=== PATIENT | male | born 1955 | race Caucasian/White ===

== ENCOUNTER 2018-08-03 15:58 | Emergency (ER) | payer BC, MEDICARE, SELFPAY ==
[2018-08-03 16:14] VITALS: BP 114/90; PULSE 73; RESP 16; TEMP 37.1; O2SAT 96
--- NOTE | 2018-08-03 17:18 | DI.RAD_ITS ---
SYMPTOM/DIAGNOSIS: COUGH, SOB PA AND LATERAL CHEST: The heart is normal in size. The lungs are clear. The mediastinal structures and pleura appear intact. CONCLUSION: Normal chest. No evidence of acute cardiopulmonary disease.
--- NOTE | 2018-08-03 17:23 | ED.GENADUL_ITS ---
Discharge Plan Disposition Patient Disposition: HOME Condition: Improving Discharge Details Chief Complaint: RespSymp Clinical Impression: Bronchitis, Acute exacerbation of chronic obstructive pulmonary disease (COPD) , Dizziness Primary Care Provider: Kulwinder Claudio ED Provider: Erin Marroquin Home Meds and New Rx's Prescriptions: New prednisone 50 mg tablet 50 mg PO DAILY Qty: 5 RF: 0 levofloxacin 750 mg tablet 750 mg PO DAILY Qty: 5 RF: 0 Continue zolpidem 10 MG tablet 10 mg PO HS PRNQty: 30 RF: 1 paroxetine HCl 30 MG tablet 30 mg PO DAILY Qty: 90 RF: 0 lisinopril 5 MG tablet 5 mg PO DAILY Qty: 90 RF: 4 Metoprolol Succinate 25 MG TAB.ER.24H 25 mg PO DAILY Qty: 90 RF: 4 pantoprazole 40 MG tablet,delayed release (DR/EC) 40 mg PO BID@729,1999 Qty: 180 RF: 4 clonazepam 0.5 MG tablet 0.5 mg PO BID Qty: 60 RF: 2 ranitidine HCl [Zantac] 150 MG tablet 300 mg PO HS Qty: 30 RF: 0 nitroglycerin [Nitrostat] 0.4 MG tablet, sublingual 0.4 mg Sublingual Q5 MIN PRN X3 PRNQty: 1 RF: 0 aspirin 81 MG tablet,chewable 81 mg PO DAILY RF: 0 albuterol sulfate [ProAir HFA] 200 PUFF/INH HFA aerosol inhaler 2 puff Inhalation Q4H PRN PRNQty: 1 RF: 0 Discharge Instructions Instructions: Acute Bronchitis (ED), COPD (Chronic Obstructive Pulmonary Disease) (ED), Dizziness (ED) Additional Instructions: Drink plenty of fluids and get plenty of rest. Take the antibiotics and steroids until finished. Follow-up with your primary care doctor in 1 week for reevaluation. Return to the emergency department with any worsening or new concerning symptoms. Stand Alone Forms: Work Release Discharge Data Discharge Date/Time-TO BE ENTERED AT DEPARTURE: 08/03/18 23:40 Discharge Physician: Erin Marroquin Medical Decision Making MDM Narrative Medical decision making narrative: 63 yo M with a history of COPD and former tobacco smoker who quit fatigue, decreased p.o. intake, nausea, cough occasionally dry and occasionally productive of yellow sputum, shortness of breath, and dizziness for the past 2 days. Patient states he mainly because his forced him to come in for evaluation. Patient states he is mainly concerned that he has pneumonia which is diagnosed with in March 2018 for which required hospitalization. He admits to occasional chest tightness but denies any chest pain or tightness at present. He denies fever. He denies recent antibiotics or steroids after March 2018. Vitals within normal limits. Diminished breath sounds throughout. No wheezing rales or rhonchi noted. No lower extremity edema. Patient airway intact and speaking full sentences. He appears nontoxic. 1747 --EKG notes a rate of 56, sinus, no acute ST elevation or depression. QTc 396. QRS 80. Differential diagnosis includes pneumonia, acute exacerbation, acute CHF, RI, viral illness. Will place an IV, fluids, labs including BNP, troponin, chest x-ray and urinalysis. We will also give a DuoNeb and Solu-medrol. 1914 --labs and imaging reviewed and unremarkable. White blood cell count 5.24. Hemoglobin 12.6. Creatinine 1.47. Troponin negative. BNP 264. Chest x -ray negative. 1944 --patient still complaining of dizziness and fatigue on exam. States he will feel short of breath. Will give another neb treatment at 7.5 mg and reassess. We will also obtain a urinalysis. Will finish liter IV fluid. 2129 --he feels no better after fluids and still complaining of fatigue and dizziness and nausea. He denies any headache. Urinalysis negative. Patient is requesting admission for his fatigue as he states he is too weak to go home. Patient has not eaten for the past few days. We will give a liter IV fluids, tray of food and dose of Zofran and reassess. 2314 --patient feels better after IV fluids and is requesting to go home. Patient states he still feels tired. Patient was offered admission but declines stating he would rather go home. It was explained to patient that he would have to be transferred to another facility as we have no beds available and again he is requesting to go home. He states he will come back tomorrow if he does not feel well. Patient stated that he has had cold symptoms with productive cough for the past 10 days. Although patient has no fever, white blood cell count, and negative chest x-ray, with fatigue, history of COPD, and lingering cough, will treat with antibiotics. Pt was sent home with a prescription for Levaquin and prednisone and inhaler. Patient instructed to follow-up with his primary care doctor for reevaluation and return here immediately if worse. HPI - General Adult General Date/Time Provider Initiated Documentation: 08/03/18 16:25 . HPI Narrative: Pt is a 63yo M w/ a h/o COPD and former tobacco smoker who presents to the ED w/ a c/o cold symptoms x 1.5 weeks and fatigue and decrease PO intake for the past 2 days. Pt states he has been sleeping most of the day for the past 2 days. Admits to cough mainly with exertion and is occasionally dry vs productive of yellow sputum. Admits to onset of shortness of breath since last night. Denies chest pain. Also admits to dizziness that sometimes feels like lightheadedness and also like spinning. Also admits to nausea. Denies vomiting, diarrhea, fever, urinary symptoms.abdominal pain, recent travel , recent antibiotics, recent surgery, leg pain or swelling. Past medical history: COPD, HTN, RI, Kidney stone Past surgical history: Stent placement, Hernia repair, L ankle surgery x 3, Pelvic fusion, Kidney stone, Rotator cuff repair Social history: Quit tobacco 2014, Former ETOH, denies drugs Meds: Albuterol, ASA, Clonazepam, Lisinopril, Metoprolol, Nitro, Protonix, Zantac, Ambien Allergies: NKDA Related Data Home Medications Medication Instructions Recorded Confirmed zolpidem 10 mg PO HS PRN #30 tab-cap 04/01/18 08/03/18 Previous Rx's Medication Instructions Recorded albuterol sulfate [ProAir HFA] 2 puff INHALATION Q4H PRN PRN #1 03/13/18 inh aspirin 81 mg PO DAILY chew 03/13/18 nitroglycerin [Nitrostat] 0.4 mg SUBLINGUAL Q5 MIN PRN X3 03/13/18 PRN #1 btl ranitidine HCl [Zantac] 300 mg PO HS #30 tab 03/13/18 paroxetine HCl 30 mg PO DAILY #90 tab-cap 05/05/18 lisinopril 5 mg PO DAILY #90 tab-cap 05/22/18 pantoprazole 40 mg PO BID@07,1999 #180 tabcr 05/22/18 clonazepam 0.5 mg PO BID #60 tab-cap 06/30/18 levofloxacin 750 mg PO DAILY #5 tab 08/03/18 prednisone 50 mg PO DAILY #5 tab 08/03/18 Allergies Allergy/AdvReac Type Severity Reaction Status Date / Time No Known Allergies Allergy Unverified 08/03/18 16:17 General Stated Complaint: RespSymp ANNELIESE: 3 Review of Systems Review of Systems All systems reviewed & are unremarkable except as noted in HPI and below Constitutional Denies chills, Denies excessive sweating, Reports fatigue, Denies fever(s), Reports poor appetite, Reports weakness and Denies weight loss Eyes Patient Reports system reviewed and no additional complaints, except as docu and Denies blurry vision ENT Denies vertigo, Reports dizziness, Denies otalgia, Denies nasal congestion, Denies sore throat and Denies throat swelling Cardiovascular Denies chest pain, Denies syncope, Denies rapid heart rate and Reports dyspnea Respiratory Reports dyspnea Gastrointestinal Denies abdominal pain, Denies diarrhea, Reports nausea and Denies vomiting Genitourinary Denies hematuria, Denies dysuria and Denies flank pain Musculoskeletal Denies back pain and Denies joint swelling Integumentary/Breasts Denies lesions and Denies rash Neurologic Denies behavioral changes, Denies confusion, Denies vertigo, Reports dizziness, Denies syncope and Reports weakness Psychiatric Denies behavioral changes, Denies confusion and Denies depression Endocrine Denies excessive sweating and Reports fatigue Hematologic/Lymphatic Denies easy bruising and Denies lymphadenopathy Allergic/Immunologic Denies throat swelling PFSH Family History Mother Neoplasm Father Substance abuse Heart disease Chronic obstructive lung disease Sister Substance abuse Brother Heart disease Myocardial infarction Cerebrovascular accident Brother Myocardial infarction Daughter Substance abuse Daughter Depression Social History Smoking/Tobacco Use Status: Former Tobacco Use Surgical History EGD - MAC (03/13/18) Stent placement (~2002) Exam Const General: cooperative, no acute distress and well developed Orientation: alert, awake and oriented x3 HENMT Head: normal to inspection Ears: hearing grossly normal bilaterally, external ears normal and TM's normal bilaterally General nose exam: external nose normal Face and sinus: normal facial exam Mouth: mucous membranes dry Teeth and gingiva: dentition normal Throat: posterior oropharynx normal Eyes General: appearance normal, both eyes and all related structures Eyelids: eyelids normal Pupils: PERRL EOM: EOM intact bilaterally Neck Neck: normal visual inspection Lymphatic: no lymphadenopathy noted Chest Chest: normal inspection of the chest Resp Effort & Inspection: normal respiratory effort and able to speak in complete sentences Auscultation: diminished lung sounds, no rales, no rhonchi and no wheezes Cardio Rate: regular rate Rhythm: regular rhythm GI Inspection: normal to inspection Palpation: soft, not firm, no guarding, no hepatosplenomegaly, no masses and nontender Auscultation: normal bowel sounds Back/Spine/Pelvis Back: no CVA tenderness Skin General skin exam: no rashes or lesions noted Neuro General: alert and awake Cognition: normal cognition Speech: speech normal Gait: normal gait Motor: muscle tone normal throughout Sensory Exam: no sensory deficits noted Extrem General: normal to inspection, full ROM, normal capillary refill, no calf tenderness bilaterally and no edema Psych Appearance: grossly normal Mental Status: mental status grossly normal Speech and Movement: speech and movement normal Affect: normal affect Thought Process: normal Course Vital Signs Temperature 98.8 F 08/03/18 16:14 Pulse 73 08/03/18 16:14 Respiratory Rate 16 08/03/18 16:14 Blood Pressure 114/90 08/03/18 16:14 Pulse Oximetry 96 08/03/18 16:14 Temperature 98.8 F 08/03/18 16:14 Pulse 73 08/03/18 16:14 Respiratory Rate 16 08/03/18 16:14 Blood Pressure 114/90 08/03/18 16:14 Pulse Oximetry 96 08/03/18 16:14
[2018-08-03] MEDS: Normal Saline 250 ML 500 ML IV (18:00)
[2018-08-03 18:06] VITALS: PULSE 73; RESP 16; O2SAT 96
[2018-08-03] MEDS: methylPREDNISolone SUCC 125 MG VIAL IVP (18:06)
[2018-08-03] MEDS: Albuterol/Ipratropium 3 ML UPD VIAL UPD (18:06)
[2018-08-03 18:10] LABS: Absolute Basophil Count 0.02 k/cumm (0.0-0.2); Absolute Eosinophil Count 0.14 k/cumm (0.0-0.7); Absolute Lymphocyte Count 1.54 k/cumm (1.2-3.4); Absolute Monocyte Count 0.63 k/cumm (0.11-0.7); Absolute Neutrophil Count 2.91 k/cumm (1.2-6.7); Basophils % 0.4; Eosinophils % 2.7; HCT 37.1 % (40.0-50.0); HGB 12.6 g/dL (13.5-17.5); Lymphocytes % 29.4; Mean Corpuscular Hemoglobin 32.5 pg (27.0-33.0); Mean Corpuscular Volume 95.6 fL (80-95); Neutrophils % 55.5; Platelet Count 144 x1000/uL (130-400); RBC 3.88 m/cumm (4.50-6.00); RBC Distribution Width 12.9 % (11.8-14.1); White Blood Cell Count 5.24 k/cumm (4.4-10.8)
[2018-08-03 18:15] VITALS: BP 114/71; PULSE 56; RESP 12; O2SAT 97
[2018-08-03 18:33] LABS: ALT 32 U/L (12-78); AST 25 U/L (15-37); Albumin 3.6 g/dL (3.4-5.0); Alkaline Phosphatase 70 U/L (46-116); Anion Gap 7.1 mmol/L (3-11); BUN 19 mg/dL (7-18); Bilirubin, Total 0.3 mg/dL (0.2-1.0); CO2 28.9 mmol/L (21.0-32.0); CREATININE 1.47 mg/dL (0.70-1.30); Calcium 8.4 mg/dL (8.5-10.1); Chloride 105 mmol/L (98-107); Estimated GFR 48.08 (mL/min/1.73m2); Glucose 83 mg/dL (70-100); Magnesium 1.9 mg/dL (1.8-2.4); NT-proBNP 264 pg/mL; Potassium 4.1 mmol/L (3.5-5.1); Sodium 141 mmol/L (136-145); Total Protein 6.8 g/dL (6.4-8.2)
[2018-08-03 18:35] LABS: Troponin I < 0.02 ng/mL (0.00-0.06)
[2018-08-03 18:36] VITALS: PULSE 60; RESP 17; O2SAT 96
[2018-08-03 18:46] VITALS: BP 115/65; PULSE 54; RESP 12; TEMP 37; O2SAT 96
--- NOTE | 2018-08-03 19:10 | DI.VRAD_ITS ---
EXAM: XR Chest, 2 Views CLINICAL HISTORY: 63 years old, male; Signs and symptoms; Cough and shortness of breath; Patient HX: Cough, SOB; Additional info: R/O acute disease TECHNIQUE: Frontal and lateral views of the chest. COMPARISON: CR - CHEST 2 VIEWS PA,LAT 03/08/2018 6:17 PM FINDINGS: Lungs: 6 mm diameter nodule in the retrosternal air space, likely granuloma and unchanged. Clear lungs. No pulmonary consolidation. Pleural space: Unremarkable. No pneumothorax. Heart: Unremarkable. No cardiomegaly. Mediastinum: Unremarkable. Bones/joints: Unremarkable. IMPRESSION: No acute findings. Dictated and Authenticated by: Ronnie Peñaloza MD. Ordering:KYRIE CHO MD
[2018-08-03] MEDS: Albuterol 2.5 MG/3 ML INH SOLN VIAL 7.5 MG UPD (20:05)
[2018-08-03] MEDS: Normal Saline 500 ML IV (20:05)
[2018-08-03 20:59] LABS: Bilirubin Negative (Negative); Blood Negative (Negative); Clarity Clear; Glucose Negative (Negative); Ketones Negative (Negative); Leukocyte Esterase Negative (Negative); Nitrite Negative (Negative); Specific Gravity 1.015 (1.005-1.025)
[2018-08-03] MEDS: Meclizine 25 MG TAB PO (21:35)
[2018-08-03] MEDS: Ondansetron 4 MG/2 ML VIAL IVP (21:35)
[2018-08-03] MEDS: Normal Saline 1,000 ML 1000 ML IV (21:41)
[2018-08-03] MEDS: LEVOFLOXACIN 500 MG, LEVOFLOXACIN 250 MG 750 MG PO (23:33)
[2018-08-03] MEDS: Albuterol HFA 8 GM 60 PUFF INH IH (23:34)
--- NOTE | 2018-08-04 09:51 | PDOC.ERCMPRO ---
Care Management Progress Note 08/04/18-Pt seen on 08/03/[address] for resp[address] Marin Marroquin. F/U referral was faxed to [facility] as Dr. Ayaz Claudio as he is Pt's PCP.
== END 2018-08-03 23:40 | disposition home or self-care (01) ==
PROVIDERS: Emergency Provider Physician Assistant; PCP Family Medicine
DX: J44.0 Chronic obstructive pulmonary disease with (acute) lower respiratory infection (principal); J20.9 Acute bronchitis, unspecified; R42 Dizziness and giddiness; Z87.891 Personal history of nicotine dependence; I10 Essential (primary) hypertension
CPT/HCPCS: 36415; 80053; 93005; 94640; 96361; 96374; 96375; 99284; 71046; 81003; 83735; 83880; 84484; 85025; 93010; 99285; J2405; J2930; J7613; J7620

== ENCOUNTER 2019-02-06 16:36 | Emergency (ER) | payer MEDICARE, BC, SELFPAY ==
[2019-02-06 16:38] VITALS: BP 141/67; PULSE 95; RESP 18; TEMP 36.8; O2SAT 96
--- NOTE | 2019-02-06 16:45 | DI.RAD_ITS ---
SYMPTOM/DIAGNOSIS: COUGH, SOB PA AND LATERAL CHEST: Comparison is made with 08/03/18. The cardiac and mediastinal contours have a normal appearance. The lungs are well inflated and clear. No infiltrate or effusion is seen. IMPRESSION: Negative chest xray.
--- NOTE | 2019-02-06 16:52 | ED.GENADUL_ITS ---
Discharge Plan Disposition Patient Disposition: HOME Condition: Good Discharge Details Chief Complaint: RespSymp Clinical Impression: Community acquired pneumonia, COPD exacerbation Primary Care Provider: Kulwinder Claudio ED Provider: Roland Quintanilla Home Meds and New Rx's Prescriptions: New doxycycline hyclate 100 mg capsule 100 mg PO BID Qty: 20 RF: 0 prednisone 50 MG tablet 50 mg PO DAILY Qty: 5 RF: 0 No Action lisinopril 5 MG tablet 5 mg PO DAILY Qty: 90 RF: 4 Metoprolol Succinate 25 MG TAB.ER.24H 25 mg PO DAILY Qty: 90 RF: 4 pantoprazole 40 MG tablet,delayed release (DR/EC) 40 mg PO BID@ Qty: 180 RF: 4 paroxetine HCl 30 mg tablet 30 mg PO DAILY Qty: 90 RF: 4 clonazepam 0.5 mg tablet 0.5 mg PO BID Qty: 60 RF: 2 albuterol sulfate [ProAir HFA] 90 mcg/actuation HFA aerosol inhaler 2 puff Inhalation Q4H PRN PRN (Reason: bronchospasm) Qty: 1 RF: 2 zolpidem 10 mg tablet 10 mg PO HS PRN (Reason: insomnia) Qty: 30 RF: 1 ranitidine HCl [Zantac] 150 MG tablet 300 mg PO HS Qty: 30 RF: 0 nitroglycerin [Nitrostat] 0.4 MG tablet, sublingual 0.4 mg Sublingual Q5 MIN PRN X3 PRNQty: 1 RF: 0 aspirin 81 MG tablet,chewable 81 mg PO DAILY RF: 0 Discharge Instructions Instructions: COPD (Chronic Obstructive Pulmonary Disease) (ED), Pneumonia (ED) Additional Instructions: Please take the antibiotic and steroids as directed. Please use your inhaler, 2 puffs every 6 hours for the next 48-72 hours. If you notice any worsening of your symptoms, or any new symptoms such as vomiting, diarrhea, fever, chills, shortness of breath, chest pain, numbness, weakness, or fainting , please return immediately to the emergency department for reevaluation. Please follow up with your primary care provider as soon as possible for reassessment and reevaluation. As always, it was a pleasure participating in your medical care today. Referrals: Kulwinder Claudio MD [Primary Care Provider] - Medical Decision Making This is a pleasant 63-year-old male with a past medical history of COPD, cardiac disease, who presents with 2 weeks of cough, with productive yellow sputum, improved with his breathing treatment. He denies any significant chest pain, exertional chest pain, other complaints. He has no significant red flags for pulmonary embolism. Physical exam demonstrates notably reassuring vital signs, no significant tachycardia, tachypnea or hypoxemia. Lung sounds reveal minimal diminishment, but no evidence of significant wheezes rales or rhonchi. Signs and symptoms appear consistent with a mild COPD exacerbation versus bronchitis. We will get an x-ray to rule out notable pneumonia, we will give a breathing treatment here. EKG is benign and shows no evidence of STEMI. I feel the signs and symptoms are clinically inconsistent with a cardiac etiology at this time. 5:32 PM Patient's EKG has returned and is benign. Chest x-ray has returned and is unremarkable per virtual radiology, however clinically I do feel the patient is suffering from mild community-acquired pneumonia. He had a notable improvement with the breathing treatment. We will give a dose of steroids here, as well as a prescription for home use. Additionally will give a dose of doxycycline here on prescription. Recommend continuation of his inhaler, and close follow-up with his PCP. Discussed red flags which return the patient understands. Currently his signs and symptoms are clinically consistent with mild community- acquired pneumonia, with notably reassuring vital signs, no signs of respiratory distress, and a clinical presentation noted at this time is not consistent with cardiac etiology or severe respiratory etiology. Currently see no indication for inpatient admission. I have extensively reviewed the treatment plan and discharge instructions with the patient. I have addressed all patient concerns at this time. The patient was made aware of what symptoms to monitor for that would warrant a return to the emergency department. Discussed the plan with the patient, they demonstrate verbal understanding and agreement with our assessment and plan at this time. EKG 16: 50 Rate 78, intervals normal, normal sinus rhythm, no significant ST elevations or depressions, no T wave inversions, minimal 1 mm Q waves in lead II, III, and aVF consistent with his prior CO. Findings are consistent with prior EKG from 08/03/18 COMPARISON: CR XR CHEST 2V PA LATERAL 08/03/2018 6:50 PM FINDINGS: Lungs: Redemonstrated anterior right upper lobe calcified granuloma. No infiltrate or consolidation. Pleural space: Unremarkable. No pleural effusion. No pneumothorax. Heart/Mediastinum: Unremarkable. No cardiomegaly. Bones/joints: Unremarkable. IMPRESSION: No acute findings. Thank you for allowing us to participate in the care of your patient. Dictated and Authenticated by: Dimple Barahona MD [facility] General Date/Time Provider Initiated Documentation: 02/06/19 16:40 . HPI Narrative: This is a 63-year-old male with a past medical history of COPD, tobacco abuse from which he quit 3 years ago, hypertension, and a myocardial infarction in the past who presents today for evaluation of cough, malaise, productive yellow sputum, generalized fatigue. He denies any severe chest pain. He does admit to very mild shortness of breath. He denies any exertional chest pain. He denies any neck arm or shoulder pain. Patient has been taking his albuterol inhaler, but has had some improvement with this. He denies any recent antibiotic use or any admission in the last 90 days. He has no other complaints or modifying factors at this time. He denies any hemoptysis, fever, hematochezia, acholic stool, hematemesis denies PE risk factors such as recent long car rides, immobilization, recent surgery, prior history of DVT or PE, family history of PE or DVT, morbid obesity, exogenous estrogen and smoking, hemoptysis, history of cancer. . Related Data Home Medications Medication Instructions Recorded Confirmed aspirin 81 mg PO DAILY chew 03/13/18 02/06/19 nitroglycerin [Nitrostat] 0.4 mg SUBLINGUAL Q5 MIN PRN X3 03/13/18 02/06/19 PRN #1 btl ranitidine HCl [Zantac] 300 mg PO HS #30 tab 03/13/18 02/06/19 lisinopril 5 mg PO DAILY #90 tab-cap 05/22/18 02/06/19 pantoprazole 40 mg PO BID@0730,2000 #180 tabcr 05/22/18 02/06/19 paroxetine 30 mg tablet 30 mg PO DAILY #90 tab-cap 08/18/18 02/06/19 clonazepam 0.5 mg tablet 0.5 mg PO BID #60 tab-cap 10/26/18 02/06/19 albuterol sulfate HFA 90 2 puff INHALATION Q4H PRN PRN #1 10/28/18 02/06/19 mcg/actuation aerosol inhaler inh zolpidem 10 mg tablet 10 mg PO HS PRN #30 tab 12/28/18 02/06/19 doxycycline hyclate 100 mg PO BID #20 cap 02/06/19 prednisone 50 mg PO DAILY #5 tab 02/06/19 Previous Rx's Medication Instructions Recorded aspirin 81 mg PO DAILY chew 03/13/18 nitroglycerin [Nitrostat] 0.4 mg SUBLINGUAL Q5 MIN PRN X3 03/13/18 PRN #1 btl ranitidine HCl [Zantac] 300 mg PO HS #30 tab 03/13/18 lisinopril 5 mg PO DAILY #90 tab-cap 05/22/18 pantoprazole 40 mg PO BID@0730,2000 #180 tabcr 05/22/18 paroxetine 30 mg tablet 30 mg PO DAILY #90 tab-cap 08/18/18 clonazepam 0.5 mg tablet 0.5 mg PO BID #60 tab-cap 10/26/18 albuterol sulfate HFA 90 2 puff INHALATION Q4H PRN PRN #1 10/28/18 mcg/actuation aerosol inhaler inh zolpidem 10 mg tablet 10 mg PO HS PRN #30 tab 12/28/18 doxycycline hyclate 100 mg PO BID #20 cap 02/06/19 prednisone 50 mg PO DAILY #5 tab 02/06/19 Allergies Allergy/AdvReac Type Severity Reaction Status Date / Time No Known Allergies Allergy Unverified 02/06/19 16:52 General Stated Complaint: RespSymp ANNELIESE: 3 Review of Systems Review of Systems All systems reviewed & are unremarkable except as noted in HPI and below PFSH Social History Smoking/Tobacco Use Status: Former Tobacco Use Quit Date: 04/17/16 Alcohol Intake: never Drug use: Never Substance use type: does not use Household members: other Details: 8 current occupation: Weatherization crew Pets and animals: Yes Pets and animals: other Details: Rabbits Special adrien needs: No Do you feel safe at home: Yes Do you feel safe in your relationship?: Yes Exam Narrative Exam Narrative: 1.Const: Well-nourished, Well-developed, appearing stated age 2.Eyes: PERRL, no conjunctival injection, and symmetrical lids. 3.ENT: Atraumatic external nose and ears. Moist MM. Neck: Symmetric, trachea midline, No thyromegaly. 4.CVS: +S1/S2, No murmurs or gallops. Peripheral pulses 2+ and equal in all extremities. Brisk capillary refill in all extremities. 5.RESP: Unlabored respiratory effort. Reduced breath sounds throughout, no significant wheeze, crackles, or rhonchi. 6.GI: Soft, Nontender/Nondistended, No hepatosplenomegaly. No guarding or rebound. 7.MSK: Normocephalic/Atraumatic, Extremities w/o deformity or ttp No cyanosis or clubbing, Normal movement of all extremities 8.Skin: Warm, Dry. No rashes or lesions. 9.Neuro: product transfer pumper II-XII grossly intact. Sensation grossly intact, no focal neurologic deficits. 10.Psych: (AAO) x3. Appropriate mood and affect Course Vital Signs Pulse 95 H 02/06/19 16:38 Respiratory Rate 18 02/06/19 16:38 Blood Pressure 141/67 H 02/06/19 16:38 Pulse Oximetry 96 02/06/19 16:38 Temperature Source Temporal Artery Scan 02/06/19 16:38 Pulse 95 H 02/06/19 16:38 Respiratory Rate 18 02/06/19 16:38 Blood Pressure 141/67 H 02/06/19 16:38 Blood Pressure Position Sitting 02/06/19 16:38 Pulse Oximetry 96 02/06/19 16:38 Oxygen Delivery Method Room Air 02/06/19 16:38 Oxygen Flow Rate 0 02/06/19 16:38 Pain Level 6 02/06/19 16:38
[2019-02-06 16:56] VITALS: RESP 4
[2019-02-06] MEDS: Albuterol/Ipratropium 3 ML UPD VIAL UPD (16:56)
--- NOTE | 2019-02-06 17:27 | DI.VRAD_ITS ---
EXAM: XR Chest, 2 Views EXAM DATE/TIME: 02/06/2019 5:01 PM CLINICAL HISTORY: 63 years old, male; Signs and symptoms; Cough and shortness of breath TECHNIQUE: Imaging protocol: XR of the chest, 2 views. COMPARISON: CR XR CHEST 2V PA LATERAL 08/03/2018 6:50 PM FINDINGS: Lungs: Redemonstrated anterior right upper lobe calcified granuloma. No infiltrate or consolidation. Pleural space: Unremarkable. No pleural effusion. No pneumothorax. Heart/Mediastinum: Unremarkable. No cardiomegaly. Bones/joints: Unremarkable. IMPRESSION: No acute findings. Dictated and Authenticated by: Dimple Barahona MD. Ordering:GABY Watkins MD
[2019-02-06] MEDS: Doxycycline Hyclate 100 MG CAP PO (17:35)
[2019-02-06] MEDS: predniSONE 20 MG TAB 60 MG PO (17:35)
[2019-02-06 17:42] VITALS: PULSE 85; RESP 18; TEMP 36.7; O2SAT 95
== END 2019-02-06 17:42 | disposition home or self-care (01) ==
PROVIDERS: Emergency Provider Student in an Organized Health Care Education/Training Program; PCP Family Medicine
DX: J18.9 Pneumonia, unspecified organism (principal); J44.1 Chronic obstructive pulmonary disease with (acute) exacerbation; I10 Essential (primary) hypertension; I25.2 Old myocardial infarction; Z87.891 Personal history of nicotine dependence
CPT/HCPCS: 93005; 94640; 99284; 71046; 93010; 99283; J7512; J7620

== ENCOUNTER 2019-05-31 09:22 | Emergency (ER) | payer MEDICARE, BC, SELFPAY ==
[2019-05-31 09:26] VITALS: BP 154/78; PULSE 59; RESP 16; TEMP 36.8; O2SAT 95
--- NOTE | 2019-05-31 09:40 | W.ED.GENAD ---
Discharge Plan Disposition Patient Disposition: HOME Condition: Good Discharge Details Chief Complaint: DentalOral Clinical Impression: Pain, dental Primary Care Provider: Kulwinder Claudio ED Provider: Roland Quintanilla Home Meds and New Rx's Prescriptions: New amoxicillin-pot clavulanate [Augmentin] 875-125 mg tablet 1 tab PO BID Qty: 14 RF: 0 acetaminophen [Mapap Extra Strength] 500 MG tablet 1,000 mg PO Q6H 5 Days Qty: 60 RF: 0 ibuprofen [Motrin IB] 200 MG tablet 600 mg PO Q6H 5 Days Qty: 60 RF: 0 No Action clonazepam 0.5 mg tablet 0.5 mg PO BID Qty: 60 RF: 2 lisinopril 5 MG tablet 5 mg PO DAILY Qty: 90 RF: 4 Metoprolol Succinate 25 MG TAB.ER.24H 25 mg PO DAILY Qty: 90 RF: 4 pantoprazole 40 MG tablet,delayed release (DR/EC) 40 mg PO BID@07,1999 Qty: 180 RF: 4 paroxetine HCl 30 mg tablet 30 mg PO DAILY Qty: 90 RF: 4 albuterol sulfate [ProAir HFA] 90 mcg/actuation HFA aerosol inhaler 2 puff Inhalation Q4H PRN PRN (Reason: bronchospasm) Qty: 1 RF: 2 zolpidem 10 mg tablet 10 mg PO HS PRN (Reason: insomnia) Qty: 30 RF: 1 nitroglycerin [Nitrostat] 0.4 MG tablet, sublingual 0.4 mg Sublingual Q5 MIN PRN X3 PRNQty: 1 RF: 0 aspirin 81 MG tablet,chewable 81 mg PO DAILY RF: 0 Discharge Instructions Instructions: Toothache (ED) Additional Instructions: You have an infected tooth. Please follow-up with the dentist immediately. Please take the antibiotic as directed. Please take Tylenol and Motrin as directed every 6 hours. Please take the [place] only as needed at night for sleep. Do not take it with Tylenol as it contains some Tylenol in it. If you notice any worsening of your symptoms, or any new symptoms such as vomiting, diarrhea, fever, chills, shortness of breath, chest pain, numbness, weakness, or fainting , please return immediately to the emergency department for reevaluation. Please follow up with your primary care provider as soon as possible for reassessment and reevaluation. As always, it was a pleasure participating in your medical care today. Referrals: Kulwinder Claudio MD [Primary Care Provider] - Medical Decision Making This is a 63-year-old male with past medical history of hypertension, high cholesterol, and reactive airway disease who presents today for dental pain on his right lower jaw around 230. There is mild swelling, minimal fluctuance, notably poor dentition. He has not seen a dentist yet secondary to lack of insurance. No recent antibiotics. He does take ibuprofen this does improve his symptoms slightly. Exam demonstrates swelling, minimal fluctuance but no drainage. We will perform dental block, then attempt to I&D the area for potential removal of purulent material. Patient will be started on antibiotics, and given the dental resource sheet. 9:53 AM Dental block was performed and the patient had near complete resolution of his pain. Periapical I&D was performed, very small amount of purulent material was removed but no significant purulent discharge. Patient will be started on antibiotics, recommended Tylenol and Motrin [id number] for pain control, close follow-up with dentist. I have extensively reviewed the treatment plan and discharge instructions with the patient. I have addressed all patient concerns at this time. The patient was made aware of what symptoms to monitor for that would warrant a return to the emergency department. Discussed the plan with the patient, they demonstrate verbal understanding and agreement with our assessment and plan at this time. Time out was taken to identify the correct patient, procedure, and site. Risks and benefits were discussed with the patient and consent was obtained. Direct pressure was held over the area prior to the procedure to reduce painful injection. 5 cc?s of Lidocaine 1% and Bupivacaine 0.25% was instilled into the right posterior mandible with a 27 gauge needle.Complete analgesia was obtained. The patient tolerated the procedure. There were no complications. HPI General Date/Time Provider Initiated Documentation: 05/31/19 09:29. HPI Narrative: This is a pleasant 63-year-old male who with a past medical history of COPD, hypertension, who presents today for evaluation of dental pain. The patient states that he has a known history of periodontal disease, and over the last few days he has noticed pain and swelling in his right lower mouth around tooth 30. Patient denies any fever, chills, headache, neck pain, difficulty swallowing or breathing. He denies any recent antibiotics. He denies any other complaints at this time. No other modifying factors. He has taken Advil and this did slightly improve his symptoms. He denies taking any Tylenol. He has not yet seen contacted a dentist secondary to a lack of dental insurance Related Data Home Medications Medication Instructions Recorded Confirmed aspirin 81 mg PO DAILY chew 03/13/18 05/31/19 nitroglycerin [Nitrostat] 0.4 mg SUBLINGUAL Q5 MIN PRN X3 03/13/18 05/31/19 PRN #1 btl lisinopril 5 mg PO DAILY #90 tab-cap 05/22/18 05/31/19 pantoprazole 40 mg PO BID@ #180 tabcr 05/22/18 05/31/19 paroxetine HCl 30 mg tablet 30 mg PO DAILY #90 tab-cap 08/18/18 05/31/19 albuterol sulfate 90 mcg/actuation 2 puff INHALATION Q4H PRN PRN #1 10/28/18 05/31/19 aerosol inhaler inh clonazepam 0.5 mg tablet 0.5 mg PO BID #60 tab-cap 02/12/19 05/31/19 zolpidem 10 mg tablet 10 mg PO HS PRN #30 tab 03/22/19 05/31/19 acetaminophen [Mapap Extra 1,000 mg PO Q6H 5 Days #60 tab 05/31/19 Strength] amoxicillin-pot clavulanate 1 tab PO BID #14 tab 05/31/19 [Augmentin] ibuprofen [Motrin Ib] 600 mg PO Q6H 5 Days #60 tab 05/31/19 Previous Rx's Medication Instructions Recorded aspirin 81 mg PO DAILY chew 03/13/18 nitroglycerin [Nitrostat] 0.4 mg SUBLINGUAL Q5 MIN PRN X3 03/13/18 PRN #1 btl lisinopril 5 mg PO DAILY #90 tab-cap 05/22/18 pantoprazole 40 mg PO BID@ #180 tabcr 05/22/18 paroxetine HCl 30 mg tablet 30 mg PO DAILY #90 tab-cap 08/18/18 albuterol sulfate 90 mcg/actuation 2 puff INHALATION Q4H PRN PRN #1 10/28/18 aerosol inhaler inh clonazepam 0.5 mg tablet 0.5 mg PO BID #60 tab-cap 02/12/19 zolpidem 10 mg tablet 10 mg PO HS PRN #30 tab 03/22/19 acetaminophen [Mapap Extra 1,000 mg PO Q6H 5 Days #60 tab 05/31/19 Strength] amoxicillin-pot clavulanate 1 tab PO BID #14 tab 05/31/19 [Augmentin] ibuprofen [Motrin Ib] 600 mg PO Q6H 5 Days #60 tab 05/31/19 Allergies Allergy/AdvReac Type Severity Reaction Status Date / Time No Known Allergies Allergy Unverified 05/31/19 09:32 General Stated Complaint: DentalOral ANNELIESE: 3 Review of Systems Review of Systems All systems reviewed & are unremarkable except as noted in HPI and below PFSH Social History (Updated 08/11/18 @ 15:57 by Demarcus Zhu) Smoking/Tobacco Use Status: Former Tobacco Use Quit Date: 04/17/16 Alcohol Intake: never Drug use: Never Substance use type: does not use Household members: other Details: 8 current occupation: Weatherization crew Pets and animals: Yes Pets and animals: other Details: Rabbits Special adrien needs: No Do you feel safe at home: Yes Do you feel safe in your relationship?: Yes Exam Narrative Exam Narrative: 1.Const: Well-nourished, Well-developed, appearing stated age 2.Eyes: PERRL, no conjunctival injection, and symmetrical lids. 3.ENT: Atraumatic external nose and ears. Moist MM. Neck: Symmetric, trachea midline, No thyromegaly. Oral exam demonstrates mild swelling and minimal fluctuance around tooth 30. No evidence of significant cervical lymphadenopathy. No active drainage or discharge. Poor dental condition throughout patient demonstrates good movement of cervical neck. There is no nuchal rigidity, no nuchal tenderness. Patient is able to flex the neck without any difficulty or significant pain. Negative Kernig's and Brudzinski sign. 4.CVS: +S1/S2, No murmurs or gallops. Peripheral pulses 2+ and equal in all extremities. Brisk capillary refill in all extremities. 5.RESP: Unlabored respiratory effort. Clear to auscultation bilaterally. No wheezes rales or rhonchi 6.GI: Soft, Nontender/Nondistended, No hepatosplenomegaly. No guarding or rebound. 7.MSK: Normocephalic/Atraumatic, Extremities w/o deformity or ttp No cyanosis or clubbing, Normal movement of all extremities 8.Skin: Warm, Dry. No rashes or lesions. 9.Neuro: chief engineer research II-XII grossly intact. Sensation grossly intact, no focal neurologic deficits. 10.Psych: (AAO) x3. Appropriate mood and affect Course Vital Signs Temperature 36.8 C 05/31/19 09:26 Pulse 59 L 05/31/19 09:26 Respiratory Rate 16 05/31/19 09:26 Blood Pressure 154/78 H 05/31/19 09:26 Pulse Oximetry 95 05/31/19 09:26 Temperature 36.8 C 05/31/19 09:26 Temperature Source Temporal Artery Scan 05/31/19 09:26 Pulse 59 L 05/31/19 09:26 Respiratory Rate 16 05/31/19 09:26 Respiratory Effort Non-Labored 05/31/19 09:28 Blood Pressure 154/78 H 05/31/19 09:26 Blood Pressure Position Sitting 05/31/19 09:26 Pulse Oximetry 95 05/31/19 09:26 Oxygen Delivery Method Room Air 05/31/19 09:26 Oxygen Flow Rate 0 05/31/19 09:26 Pain Level 10 05/31/19 09:26
[2019-05-31] MEDS: Amoxicillin 875/Clav. 125 TAB PO (09:54)
[2019-05-31] MEDS: HYDROcodone 5/Acetaminophen 325 TAB PO (10:04)
== END 2019-05-31 10:05 | disposition home or self-care (01) ==
PROVIDERS: Emergency Provider Student in an Organized Health Care Education/Training Program; PCP Family Medicine
DX: R68.84 Jaw pain (principal); K04.7 Periapical abscess without sinus
CPT/HCPCS: 64402

== ENCOUNTER 2020-11-09 17:15 | Emergency (ER) | payer MEDICARE, BC, SELFPAY ==
--- NOTE | 2020-11-09 17:15 | RT.EKG_ITS ---
APPROVED REPORT Exam: Resting ECG Patient Location: E HR:51 bpm ECG Measurements Heart Rate 51 AXIS DE 184 P 67 QRSd 74 QRS 42 QT 422 T 54 QTc 388 Conclusion Sinus bradycardia...rate< 60 I have reviewed and interpreted ECG and agree with software generated interpretation.
[2020-11-09 17:19] VITALS: BP 139/70; PULSE 57; RESP 17; TEMP 36.7; O2SAT 97
--- NOTE | 2020-11-09 17:30 | DI.RAD_ITS ---
EXAM: XR SHOULDER RT COMPLETE 2+V CLINICAL HISTORY: pain 10 days, worse with movement. TECHNIQUE: 2D digital imaging was performed. COMPARISON: CR XR CHEST 2V PA LATERAL from 02/06/2019 FINDINGS: BONES: No acute fracture is present. No bony destructive lesion is seen. JOINTS: No dislocation present. Spurring at the acromioclavicular joint and tip of the acromion. Mil d glenohumeral joint space narrowing and spurring. SOFT TISSUE: Calcification above greater tuberosity consistent with calcific tendinitis. Additional calcifications adjacent to upper humeral shaft, could be related to biceps tendon. IMPRESSION: Degenerative changes and calcific tendinosis. DATA REPOSITORY: RADIATION DOSE DELIVERED:
--- NOTE | 2020-11-09 17:33 | ED.GENADUL_ITS ---
Discharge Plan Disposition Patient Disposition: HOME Condition: Stable Discharge Details Clinical Impression: Right shoulder pain Primary Care Provider: Lolis Vang ED Provider: Omar Pike Home Meds and New Rx's Prescriptions: New naproxen [Naprosyn] 500 mg tablet 500 mg PO BID Qty: 14 RF: 0 Continued paroxetine HCl 30 mg tablet 30 mg PO DAILY Qty: 90 RF: 4 albuterol sulfate [ProAir HFA] 90 mcg/actuation HFA aerosol inhaler 2 puff Inhalation Q4H PRN PRN (Reason: bronchospasm) Qty: 1 RF: 2 lisinopril 5 mg tablet 5 mg PO DAILY Qty: 90 RF: 4 metoprolol succinate 25 mg tablet extended release 24 hr 25 mg PO DAILY Qty: 90 RF: 4 zolpidem 10 mg tablet 10 mg PO HS PRN (Reason: insomnia) Qty: 30 RF: 0 pantoprazole 40 mg tablet,delayed release (DR/EC) 40 mg PO BID@729,1999 Qty: 180 RF: 4 nitroglycerin [Nitrostat] 0.4 MG tablet, sublingual 0.4 mg Sublingual Q5 MIN PRN X3 PRNQty: 1 RF: 0 aspirin 81 MG tablet,chewable 81 mg PO DAILY RF: 0 Discharge Instructions Instructions: Shoulder Pain (ED) Additional Instructions: Naprosyn as directed. Continue [id number] Tylenol as directed. Wear sling as needed, advance activity as tolerated. Passive range of motion at least 4 times a day to avoid a frozen shoulder. Cool and/or warm compresses every 2 hours for 20 minutes. Please watch for new or worsening symptoms and return to the ER for any concerns. I have given you the name and number of our local orthopedic provider, Dr. San. Please contact his office during business hours to set up outpatient follow-up next week. Referrals: Goran San MD [ [facility] STAFF PHYSICIAN] - Discharge Data Discharge Date/Time-TO BE ENTERED AT DEPARTURE: 11/09/20 18:43 Medical Decision Making This is a 65-year-old gentleman with past medical history of CAD, CKD, COPD, hypertension, NC with 2 stents, presenting for what he describes as atraumatic right shoulder pain. It began 10 days ago upon waking. Denies any obvious injury. Reports the pain is constant is worse with movement when he lifts it high enough he feels as though the pain is actually improved. Associated with occasional paresthesias. Denies any chest pain, shortness of breath, cough, fever, back pain. Clinically this appears more musculoskeletal, suspicious for impingement syndrome. Given his age and comorbidities, will obtain a screening EKG although extremely low suspicion for ACS. Will also obtain x-ray of his right shoulder. EKG shows sinus bradycardia, ventricular 51. No STEMI. X-ray of right shoulder reveals degenerative changes and calcific tendinopathy, no acute findings. Discussed x-ray and EKG results with patient. We discussed disposition. Will apply sling, discussed the importance of passive range of motion to avoid a frozen shoulder. We discussed prescription for anti-inflammatory. Patient initially surprised by this prescription and upset that he is not being given any painkillers. I explained to him that there is no clear indication for any narcotic medication, he appears to be in no acute distress, x-ray does not reveal any fracture or dislocation. Conservative therapy that includes sling, cool and/or warm compresses, consistent anti-inflammatory therapy, is a perfectly reasonable place to start. I will give him the name and number of our local orthopedic team we can contact and discuss outpatient therapy, potential cortisone injection, PT, MRI, may all be indicated. I did not believe treating his 10-day old pain with narcotic therapy was indicated emergently. If he fails more conservative treatment the narcotics may be eventually indicated. Patient understands my concerns and is agreeable to this plan. First dose to be given now as this is [place] and pharmacy hours are likely limited. Medical Records Medical records reviewed: Yes I reviewed the patient's medical records. Imaging Data Radiologic Study: Attestation: I personally reviewed and interpreted this imaging study as follows: Radiologist's impression: No acute findings. Calcific tendinopathy right shoulder. Mild degenerative arthritis in the AC and glenohumeral joints. ECG Data Attestation: I personally reviewed and interpreted this ECG (s) as follows: Interpretation: Please see official report by Dr. Marroquin. Sinus bradycardia, ventricular rate of 51. No STEMI. HPI General Mode of arrival: ambulatory . Date/Time Provider Initiated Documentation: 11/09/20 17:15 . Limitations to Documentation: no limitations . Information obtained by: patient . HPI Narrative: This is a 65-year-old gentleman with past medical history that includes CAD, chronic kidney disease, COPD, hypertension, anxiety, hyperlipidemia, STEMI with 2 stent placements, who is right-hand dominant. Patient reports that 10 days ago he awoke, felt as though he slept on his right shoulder funny and has had right shoulder pain since that time. He states the pain has been constant, occasional paresthesias in his hand, and symptoms have been made worse with movement especially over 90 degrees. However; if he lifts it up all of the way it feels improved like pressure has been relieved. He states that the pain is worse along the posterior and superior aspect of his shoulder and does radiate up into his trapezius and the right side of his neck occasionally. He denies previous injury to that shoulder. Denies any posterior neck pain, fever, chest pain, shortness of breath, back pain, numbness, weakness. Denies recent illness or trauma. States that he has tried [id number] medication with some relief. Related Data Home Medications Medication Instructions Recorded Confirmed aspirin 81 mg PO DAILY chew 03/13/18 11/09/20 nitroglycerin [Nitrostat] 0.4 mg SUBLINGUAL Q5 MIN PRN X3 03/13/18 11/09/20 PRN #1 btl paroxetine HCl 30 mg tablet 30 mg PO DAILY #90 tab-cap 09/03/19 11/09/20 albuterol sulfate 90 mcg/actuation 2 puff INHALATION Q4H PRN PRN #1 12/02/19 11/09/20 aerosol inhaler inh lisinopril 5 mg tablet 5 mg PO DAILY #90 tab-cap 06/22/20 11/09/20 metoprolol succinate 25 mg 25 mg PO DAILY #90 tab 06/22/20 11/09/20 tablet,extended release 24 hr zolpidem 10 mg tablet 10 mg PO HS PRN #30 tab 09/07/20 11/09/20 pantoprazole 40 mg tablet,delayed 40 mg PO BID@07,1999 #180 tabcr 10/24/20 11/09/20 release naproxen [Naprosyn] 500 mg PO BID #14 tab 11/09/20 Previous Rx's Medication Instructions Recorded aspirin 81 mg PO DAILY chew 03/13/18 nitroglycerin [Nitrostat] 0.4 mg SUBLINGUAL Q5 MIN PRN X3 03/13/18 PRN #1 btl paroxetine HCl 30 mg tablet 30 mg PO DAILY #90 tab-cap 09/03/19 albuterol sulfate 90 mcg/actuation 2 puff INHALATION Q4H PRN PRN #1 12/02/19 aerosol inhaler inh lisinopril 5 mg tablet 5 mg PO DAILY #90 tab-cap 06/22/20 metoprolol succinate 25 mg 25 mg PO DAILY #90 tab 06/22/20 tablet,extended release 24 hr zolpidem 10 mg tablet 10 mg PO HS PRN #30 tab 09/07/20 pantoprazole 40 mg tablet,delayed 40 mg PO BID@0730,1999 #180 tabcr 10/24/20 release naproxen [Naprosyn] 500 mg PO BID #14 tab 11/09/20 Allergies Allergy/AdvReac Type Severity Reaction Status Date / Time No Known Allergies Allergy Unverified 11/09/20 17:23 General Stated Complaint: Orthopedic ANNELIESE: 4 Review of Systems Constitutional Constitutional: Denies fatigue, Denies fever(s), Denies headache(s) and Denies weakness ENT Ears, Nose, Mouth, and Throat: Denies headache(s), Reports neck pain and Denies sore throat Cardiovascular Cardiovascular: Denies chest pain and Denies dyspnea Respiratory Respiratory: Denies cough and Denies dyspnea Gastrointestinal Gastrointestinal: Denies abdominal pain, Denies nausea and Denies vomiting Musculoskeletal Musculoskeletal: Denies back pain, Reports neck pain, Denies numbness, Reports stiffness and Reports tingling Integumentary/Breasts Skin/Breast: Denies rash Neurologic Neurologic: Denies headache(s), Denies numbness, Reports tingling and Denies weakness Endocrine Endocrine: Denies fatigue PFSH Medical History Alcohol abuse Abstinent since 1988 CAD (coronary artery disease) STEMI '03 s/p left circumflex stent Chronic kidney disease COPD (chronic obstructive pulmonary disease) Essential hypertension Generalized anxiety disorder with panic attacks Hyperlipidemia Insomnia Osteoarthritis STEMI (ST elevation myocardial infarction) 2002 s/p stent left circumflex artery Stented coronary artery Left circumflex artery stent in '03 Surgical History History of ankle surgery (01/01/18) Left for fracture History of esophagogastroduodenoscopy (EGD) (03/08/18) S/P arthroscopy of left shoulder (10/21/17) Open distal clavicle excision. Extensive debridement of the labrum from anterior to posterior. Debridement of the rotator cuff articularly and on the bursal side. 3. Subacromial bursectomy with acromioplasty and CA ligament release. Family History Mother , at 46 Uterine cancer Father Substance abuse Heart disease Chronic obstructive lung disease Myocardial infarction Alcohol abuse Sister Substance abuse Brother , at 54 from NC Myocardial infarction Stroke Heart disease Brother No problems noted. Daughter Substance abuse Daughter Depression Maternal Grandfather No problems noted. Maternal Grandmother No problems noted. Paternal Grandfather No problems noted. Paternal Grandmother No problems noted. Social History Smoking/Tobacco Use Status: Former Tobacco Use Quit Date: 04/17/16 Tobacco: How many years used: 50 Smokeless tobacco user: snus Smoking risk assessment performed?: Yes Alcohol Intake: never Drug use: Never Substance use type: does not use Household members: other Details: 8 current occupation: Weatherization crew Pets and animals: Yes Pets and animals: other Details: Rabbits Special adrien needs: No Do you feel safe at home: Yes Do you feel safe in your relationship?: Yes Exam Const General: cooperative, healthy appearing, comfortable and no acute distress Orientation: alert and awake [facility] Head: normal to inspection, normocephalic and atraumatic Eyes General: appearance normal, both eyes and all related structures Conjunctivae: conjunctivae normal Sclera: sclerae normal Neck Neck: normal visual inspection, full ROM, no meningeal signs, trachea midline, supple and nontender Chest Chest: normal inspection of the chest and normal palpation of entire chest wall Resp Effort & Inspection: normal respiratory effort and able to speak in complete sentences Auscultation: clear to auscultation bilaterally Cardio Rate: bradycardic (58) Rhythm: regular rhythm Back/Spine/Pelvis Back: no CVA tenderness and No back tenderness Skin General skin exam: no rashes or lesions noted Neuro General: patient alert, patient awake, moves all extremities and no focal motor deficits Cognition: normal cognition Speech: speech normal Gait: normal gait Motor: muscle tone normal throughout and strength 5/5 throughout Sensory Exam: no sensory deficits noted Extrem General: normal to inspection, full ROM and capillary refill normal Right upper extremity: normal to inspection, full ROM, normal capillary refill and shoulder/upper arm Details: normal to inspection, tenderness (Diffuse superior and posterior), axillary nerve sensory function normal and normal ROM; no swelling, no ecchymosis and no crepitus; no cyanosis Left upper extremity: normal to inspection, full ROM and normal capillary refill Psych Appearance: grossly normal Mental Status: mental status grossly normal Course Vital Signs Vital signs: Vital Signs Temperature 36.7 C 11/09/20 17:19 Pulse 57 L 11/09/20 17:19 Respiratory Rate 17 11/09/20 17:19 Blood Pressure 139/70 11/09/20 17:19 Pulse Oximetry 97 11/09/20 17:19 Temperature 36.7 C 11/09/20 17:19 Temperature Source Temporal Artery Scan 11/09/20 17:19 Pulse 57 L 11/09/20 17:19 Respiratory Rate 17 11/09/20 17:19 Respiratory Effort 11/09/20 17:24 Blood Pressure 139/70 11/09/20 17:19 Pulse Oximetry 97 11/09/20 17:19 Oxygen Delivery Method Room Air 11/09/20 17:19 Oxygen Flow Rate 0 11/09/20 17:19 Pain Level 10 11/09/20 17:19
--- NOTE | 2020-11-09 18:04 | DI.VRAD_ITS ---
PROCEDURE INFORMATION: Exam: XR Right Shoulder Exam date and time: 11/09/2020 5:42 PM Age: 65 years old Clinical indication: Pain; Shoulder; Right TECHNIQUE: Imaging protocol: XR Right shoulder. Views: 2 or more views. COMPARISON: No relevant prior studies available. FINDINGS: Bones/joints: Degenerative arthritis in the right glenohumeral and acromioclavicular joints. Calcific tendinopathy of the right shoulder adjacent to the greater tuberosity. There is also benign heterotopic ossification adjacent to proximal medial humeral shaft, consistent with benign enthesopathy.. Soft tissues: No appreciable soft tissue swelling. IMPRESSION: 1. No acute findings 2. Calcific tendinopathy right shoulder 3. Mild degenerative arthritis in the acromioclavicular and glenohumeral joints. Dictated and Authenticated by: Nilsa Snow MD. Ordering:LIZA Nelson MD
[2020-11-09] MEDS: Naproxen 250 MG TAB (18:46)
== END 2020-11-09 18:43 | disposition home or self-care (01) ==
PROVIDERS: Emergency Provider Physician Assistant; PCP Nurse Practitioner Family
DX: M25.511 Pain in right shoulder (principal); R20.2 Paresthesia of skin; R00.1 Bradycardia, unspecified; I12.9 Hypertensive chronic kidney disease with stage 1 through stage 4 chronic kidney disease, or unspecified chronic kidney disease; N18.9 Chronic kidney disease, unspecified; J44.9 Chronic obstructive pulmonary disease, unspecified
CPT/HCPCS: 93005; 99284; 73030; 93010; 99285

== ENCOUNTER 2021-03-23 17:58 | Outpatient (REF) | payer MEDICARE, BC, SELFPAY ==
[2021-03-23 14:19] LABS: ALT 30 U/L (16-63); AST 22 U/L (15-37); Albumin 4.2 g/dL (3.4-5.0); Alkaline Phosphatase 73 U/L (46-116); Anion Gap 7.2 mmol/L (3-11); BUN 20 mg/dL (7-18); Bilirubin, Total 0.6 mg/dL (0.2-1.0); CO2 28.8 mmol/L (21.0-32.0); CREATININE 1.5 mg/dL (0.70-1.30); Calcium 9.4 mg/dL (8.5-10.1); Calculated LDL 124 mg/dL (<100); Chloride 106 mmol/L (98-107); Cholesterol 179 mg/dL (<200); Estimated GFR 46.68 (mL/min/1.73m2); Glucose 103 mg/dL (74-106); HDL Cholesterol 39 mg/dL (40-60); Potassium 5.7 mmol/L (3.5-5.1); Sodium 142 mmol/L (136-145); Total Protein 7.2 g/dL (6.4-8.2); Triglyceride 84 mg/dL (<150)
[2021-03-23 15:26] LABS: Hemoglobin A1C 5.6 % (<5.7)
== END 2021-03-23 17:59 | disposition home or self-care (01) ==
LOC: LBN 17:58
PROVIDERS: PCP Nurse Practitioner Family; Visit Provider Nurse Practitioner Family
DX: E78.5 Hyperlipidemia, unspecified (principal); R73.01 Impaired fasting glucose; I10 Essential (primary) hypertension
CPT/HCPCS: 80053; 80061; 83036

== ENCOUNTER 2021-04-26 23:59 | Outpatient (REF) | payer MEDICARE, BC, SELFPAY ==
[2021-04-26 20:50] LABS: Anion Gap 8.3 mmol/L (3-11); BUN 25 mg/dL (7-18); CO2 28.7 mmol/L (21.0-32.0); CREATININE 1.8 mg/dL (0.70-1.30); Calcium 9.4 mg/dL (8.5-10.1); Chloride 106 mmol/L (98-107); Estimated GFR 37.82 (mL/min/1.73m2); Glucose 91 mg/dL (74-106); Potassium 5.4 mmol/L (3.5-5.1); Sodium 143 mmol/L (136-145)
== END 2021-04-27 | disposition home or self-care (01) ==
LOC: LBN 23:59
PROVIDERS: PCP Nurse Practitioner Family; Visit Provider Nurse Practitioner Family
DX: I25.10 Atherosclerotic heart disease of native coronary artery without angina pectoris (principal)
CPT/HCPCS: 80048

== ENCOUNTER 2021-06-04 03:07 | Outpatient (CLI) | payer MEDICARE, BC, SELFPAY ==
[2021-06-04 12:51] LABS: Anion Gap 6.5 mmol/L (3-11); BUN 14 mg/dL (7-18); CO2 31.5 mmol/L (21.0-32.0); CREATININE 1.5 mg/dL (0.70-1.30); Calcium 9.4 mg/dL (8.5-10.1); Chloride 107 mmol/L (98-107); Estimated GFR 46.68 (mL/min/1.73m2); Glucose 93 mg/dL (74-106); Sodium 145 mmol/L (136-145)
== END 2021-06-04 03:08 | disposition home or self-care (01) ==
LOC: LOS 03:12
PROVIDERS: PCP Nurse Practitioner Family; Visit Provider Nurse Practitioner Family
DX: I10 Essential (primary) hypertension (principal)
CPT/HCPCS: 36415; 80048

== ENCOUNTER 2021-07-02 19:19 | Outpatient (REF) | payer MEDICARE, BC, SELFPAY ==
[2021-07-04 13:56] LABS: COVID-19 RT-PCR UVMMC Result Negative (Negative)
== END 2021-07-02 19:20 | disposition home or self-care (01) ==
LOC: NCHCN 19:19
PROVIDERS: PCP Nurse Practitioner Family; Visit Provider Nurse Practitioner Family
DX: Z20.822 Contact with and (suspected) exposure to COVID-19 (principal); J02.9 Acute pharyngitis, unspecified
CPT/HCPCS: U0003; U0005

== ENCOUNTER 2022-12-11 02:51 | Outpatient (CLI) | payer MEDICARE, BC, SELFPAY ==
[2022-12-11 12:47] LABS: Anion Gap 6.4 mmol/L (3-11); BUN 17 mg/dL (7-18); CO2 30.6 mmol/L (21.0-32.0); CREATININE 1.5 mg/dL (0.70-1.30); Calcium 9.3 mg/dL (8.5-10.1); Chloride 106 mmol/L (98-107); Estimated GFR 50.08 (mL/min/1.73m2); Glucose 99 mg/dL (74-106); Potassium 4.6 mmol/L (3.5-5.1); Sodium 143 mmol/L (136-145)
== END 2022-12-11 02:52 | disposition home or self-care (01) ==
LOC: LOS 02:51
PROVIDERS: PCP Nurse Practitioner Family; Visit Provider Nurse Practitioner Family
DX: I25.10 Atherosclerotic heart disease of native coronary artery without angina pectoris (principal); I10 Essential (primary) hypertension
CPT/HCPCS: 36415; 80048

== ENCOUNTER 2023-12-09 03:39 | Outpatient (CLI) | payer MEDICARE, BC, SELFPAY ==
[2023-12-09 13:27] LABS: Anion Gap 6.2 mmol/L (3-11); BUN 19 mg/dL (7-18); CO2 28.8 mmol/L (21.0-32.0); CREATININE 1.6 mg/dL (0.70-1.30); Calcium 9.3 mg/dL (8.5-10.1); Calculated LDL 144 mg/dL (<100); Chloride 103 mmol/L (98-107); Cholesterol 217 mg/dL (<200); Estimated GFR 46.06 (mL/min/1.73m2); Glucose 93 mg/dL (74-106); HDL Cholesterol 55 mg/dL (40-60); Potassium 4.6 mmol/L (3.5-5.1); Sodium 138 mmol/L (136-145); Triglyceride 92 mg/dL (<150)
[2023-12-09 19:06] LABS: PSA, Screening 0.5 ng/mL (<=6.5)
[2023-12-09 19:54] LABS: Hepatitis C Ab w Rflx HCV PCR Reactive (Negative)
[2023-12-10 14:09] LABS: HCV RNA Qualitative Detected (Undetected)
== END 2023-12-09 03:40 | disposition home or self-care (01) ==
PROVIDERS: PCP Nurse Practitioner Family; Visit Provider Nurse Practitioner Family
DX: Z00.00 Encounter for general adult medical examination without abnormal findings (principal); Z12.5 Encounter for screening for malignant neoplasm of prostate; E78.5 Hyperlipidemia, unspecified
CPT/HCPCS: 36415; 80048; 80061; 84153; 86803; 87522

== ENCOUNTER 2023-12-17 04:23 | Outpatient (CLI) | payer MEDICARE, BC, SELFPAY ==
[2023-12-17 13:16] LABS: Abs Immature Grans 0.02 10^3/uL (0.0-0.06); Absolute Basophil Count 0.05 10^3/uL (0.0-0.2); Absolute Eosinophil Count 0.16 10^3/uL (0.0-0.7); Absolute Lymphocyte Count 2.26 10^3/uL (1.2-3.4); Absolute Monocyte Count 0.59 10^3/uL (0.1-0.8); Absolute Neutrophil Count 4.49 10^3/uL (1.2-6.7); Basophils % 0.7; Eosinophils % 2.1; HCT 42.4 % (40.0-50.0); HGB 14.5 g/dL (13.5-17.5); Immature Grans % 0.3; Lymphocytes % 29.9; MCHC 34.2 % (32.0-36.0); MCV 97 fL (80-95); MPV 8.7 fL (8.0-11.0); Monocytes % 7.8; Neutrophils % 59.2; Platelet Count 180 10^3/uL (130-400); RBC 4.39 10^6/uL (4.36-5.78); RDW-SD 46.3 fL; WBC 7.57 10^3/uL (4.4-10.8)
[2023-12-17 13:40] LABS: ALT 30 U/L (16-63); AST 19 U/L (15-37); Albumin 4.1 g/dL (3.4-5.0); Alkaline Phosphatase 76 U/L (46-116); Anion Gap 9.3 mmol/L (3-11); BUN 14 mg/dL (7-18); Bilirubin, Total 0.7 mg/dL (0.2-1.0); CO2 27.7 mmol/L (21.0-32.0); CREATININE 1.4 mg/dL (0.70-1.30); Calcium 9.2 mg/dL (8.5-10.1); Chloride 103 mmol/L (98-107); Estimated GFR 54.07 (mL/min/1.73m2); Glucose 102 mg/dL (74-106); Potassium 4.2 mmol/L (3.5-5.1); Sodium 140 mmol/L (136-145); Total Protein 7.9 g/dL (6.4-8.2)
[2023-12-18 09:13] LABS: HBs Antibody, Quant <3.1 mIU/mL (See Note); Hepatitis B Surface Ab Negative (See Note)
[2023-12-18 09:54] LABS: HIV-1/2 Ag & Ab Screen Negative (Negative)
[2023-12-18 11:11] LABS: Hepatitis C Ab w Rflx HCV PCR Reactive (Negative)
[2023-12-19 13:39] LABS: HCV RNA Qualitative Detected (Undetected)
== END 2023-12-17 04:24 | disposition home or self-care (01) ==
LOC: LBO 04:23
PROVIDERS: PCP Nurse Practitioner Family; Visit Provider Nurse Practitioner Family
DX: B19.20 Unspecified viral hepatitis C without hepatic coma (principal); I10 Essential (primary) hypertension; I25.10 Atherosclerotic heart disease of native coronary artery without angina pectoris; Z11.4 Encounter for screening for human immunodeficiency virus [HIV]
CPT/HCPCS: 36415; 80053; 86706; 86803; 87389; 87522; 85025

== ENCOUNTER 2024-12-27 02:39 | Outpatient (CLI) | payer MEDICARE, BC, SELFPAY ==
[2024-12-27 12:45] LABS: HCT 41.2 % (40.0-50.0); HGB 14.5 g/dL (13.5-17.5); MCH 33.3 pg (27.0-33.0); MCHC 35.2 % (32.0-36.0); MCV 95 fL (80-95); MPV 9.6 fL (8.0-11.0); Platelet Count 190 10^3/uL (130-400); RBC 4.36 10^6/uL (4.36-5.78); RDW 12.8 % (11.8-14.1); RDW-SD 44.2 fL; WBC 6.77 10^3/uL (4.4-10.8)
[2024-12-27 13:03] LABS: PHOSPHORUS 3.9 mg/dL (2.6-4.7)
[2024-12-27 13:03] LABS: ALT 24 U/L (16-63); AST 15 U/L (15-37); Albumin 4.1 g/dL (3.4-5.0); Alkaline Phosphatase 81 U/L (46-116); Anion Gap 5.2 mmol/L (3-11); BUN 20 mg/dL (7-18); Bilirubin, Total 0.71 mg/dL (0.2-1.0); CO2 29.8 mmol/L (21.0-32.0); CREATININE 1.7 mg/dL (0.70-1.30); Calcium 9.5 mg/dL (8.5-10.1); Chloride 103 mmol/L (98-107); Estimated GFR 42.57 (mL/min/1.73m2); Glucose 90 mg/dL (74-106); Potassium 4.4 mmol/L (3.5-5.1); Sodium 138 mmol/L (136-145); Total Protein 7.8 g/dL (6.4-8.2)
[2024-12-27 13:41] LABS: Calculated LDL 136 mg/dL (<100); Cholesterol 213 mg/dL (<200); HDL Cholesterol 52 mg/dL (40-60); Triglyceride 127 mg/dL (<150); Vitamin D 25 Total 25.6 ng/mL (30-100)
[2024-12-27 19:46] LABS: Parathyroid Hormone,Intact 72.2 pg/mL (19.0-88.0)
[2024-12-27 20:28] LABS: HBs Antibody, Quant 5.3 mIU/mL (See Note); Hep B Surface Ab Negative (See Note); Hepatitis B Core Antibody Negative (Negative); Hepatitis B Surface Antigen Negative (Negative)
[2024-12-29 14:00] LABS: HCV RNA Qualitative Undetected (Undetected)
== END 2024-12-27 02:40 | disposition home or self-care (01) ==
LOC: LOS 02:39
PROVIDERS: PCP Nurse Practitioner Family; Visit Provider Nurse Practitioner Adult Health
DX: N18.30 Chronic kidney disease, stage 3 unspecified (principal); Z00.00 Encounter for general adult medical examination without abnormal findings; Z11.59 Encounter for screening for other viral diseases
CPT/HCPCS: 36415; 80053; 80061; 82306; 85027; 86704; 86706; 87340; 87522; 82565; 83970; 84100; 84156

== ENCOUNTER 2025-01-14 19:30 | Outpatient (REF) | payer MEDICARE, BC, SELFPAY ==
[2025-01-14 17:01] LABS: PROTEIN 13.8 mg/dL
[2025-01-14 17:03] LABS: COMMENT (LAB VIEW ONLY) 135.87 mg/dL; Microalb ug/mg Crea 10.2 ug/mg Cr
== END 2025-01-14 19:31 | disposition home or self-care (01) ==
LOC: LBN 19:30
PROVIDERS: PCP Nurse Practitioner Family; Visit Provider Nurse Practitioner Family
DX: N18.30 Chronic kidney disease, stage 3 unspecified (principal); Z00.00 Encounter for general adult medical examination without abnormal findings
CPT/HCPCS: 82043; 82565; 82570; 84156

== ENCOUNTER 2025-04-13 02:11 | Outpatient (CLI) | payer MEDICARE, BC, SELFPAY ==
[2025-04-13 12:56] LABS: Anion Gap 7.3 mmol/L (3-11); BUN 23 mg/dL (7-18); CO2 28.7 mmol/L (21.0-32.0); CREATININE 1.7 mg/dL (0.70-1.30); Calcium 9.3 mg/dL (8.5-10.1); Chloride 104 mmol/L (98-107); Estimated GFR 42.57 (mL/min/1.73m2); Glucose 98 mg/dL (74-106); Potassium 4.6 mmol/L (3.5-5.1); Sodium 140 mmol/L (136-145)
== END 2025-04-13 02:12 | disposition home or self-care (01) ==
LOC: LOS 02:11
PROVIDERS: PCP Nurse Practitioner Family; Visit Provider Nurse Practitioner Family
DX: N18.30 Chronic kidney disease, stage 3 unspecified (principal)
CPT/HCPCS: 36415; 80048